=== PATIENT | female | born 1985 | race Caucasian/White ===

== ENCOUNTER 2019-05-04 10:42 | Emergency (ER) | payer OTHER, SELFPAY ==
--- NOTE | 2019-05-04 | ECG_ITS ---
Measurements Intervals [place] Rate: 204 P: [place]: 0 QRS: 17 QRSD: 88 T: 41 QT: 201 QTc: 370 Interpretive Statements SUPRAVENTRICULAR TACHYCARDIA NONSPECIFIC ST & T-WAVE ABNORMALITY- DIFFUSE LEADS ABNORMAL ECG Electronically Signed On 05-04-2019 11:38:22 CDT by Jack Leblanc D.O.
[2019-05-04 10:50] VITALS: BP 141/82; PULSE 205; RESP 22; TEMP 36.1; O2SAT 100
--- NOTE | 2019-05-04 11:01 | ED.ARRPALP ---
HPI - Arrhythmia/Palpitations General Chief Complaint: Arrhythmia/Palpitations Stated Complaint: arrhythmia Time Seen by Provider: 05/04/19 10:55 Source: patient and RN notes reviewed Mode of arrival: ambulatory Limitations: no limitations History of Present Illness HPI narrative: Pt is a 34 y/o female presenting to the ED c/o palpitations. Pt reports she started experiencing palpitations at 1000 this morning. Pt denies CP, SOB, cough, ST, fever, or rhinorrhea. Pt notes she had similar Sx's previously and notes she was put on a Holter monitor about 8 years ago. Pt reports the monitor did not catch any arrythmia's and her condition was undiagnosed by her Renal Nurse. Pt notes her only medication is control and states she sees a PCP in [place]. Pt reports Hx's of Asthma, Anxiety, and Tonsillectomy. Pt denies being a smoker. Onset (ago): hour(s) (1) Arrhythmia history: other (Undiagnosed) Associated symptoms: denies other symptoms Related Data Home Medications Medication Instructions Recorded Confirmed albuterol sulfate 1 inh INHALATION QID PRN 05/04/19 norethindrone-e.estradiol-iron tablet 05/04/19 [03/06 (28)] Allergies Allergy/AdvReac Type Severity Reaction Status Date / Time cefaclor Allergy Mild Hives / Verified 05/04/19 11:16 Red Face Review of Systems Review of Systems: All systems reviewed & are unremarkable except as noted in HPI and below Constitutional: Constitutional: Denies fever(s) ENT: Denies sore throat and Denies other (Rhinorrhea) Cardiovascular: Cardiovascular: Denies chest pain and Reports palpitations Respiratory: Respiratory: Denies cough and Denies dyspnea [facility] Past Medical History Medical History Anxiety Asthma Surgical History Surgical History History of tonsillectomy Social History Social History Smoking status: Never smoker Gender identity (if verbalized by the patient): Female Exam Const: General: cooperative, no acute distress and alert Nutritional Appearance: obese Orientation/consciousness: patient oriented x3 Limitations: no limitations HENMT: Mouth: Yes lip normal Resp: Effort & Inspection: normal respiratory effort Auscultation: clear to auscultation bilaterally Cardio: Rate: tachycardic Rhythm: regular rhythm GI: GI Palp: Yes Soft to palpation and No Tenderness to palpation present (GI) Auscultation: normal bowel sounds Skin: General skin exam: normal color Neuro: General: patient oriented x3 Cognition (Neuro): normal cognition Speech: normal speech Extrem: General: normal to inspection, full ROM and no clubbing, cyanosis or edema Psych: Mental Status: mental status grossly normal Affect: Anxious affect present Attitude: cooperative Course Course Emergency Course: 6 mg of Adenosine administered IVP at 1107. Pt's HR went from SVT to Tachycardic but NSR. Patient labs unremarkable aside from asymptomatic pyuria and liver enzyme elevation. Patient advised to follow-up results of urine culture and her liver enzyme elevation with her primary care physician. Patient lives in [place] 45 minutes from here. Advised importance of discussing referral to [facility] with her primary care physician closer to home where would be more convenient for her to make follow-up arrangements. Vital Signs Vital signs: Vital Signs Temperature 97.0 F L 05/04/19 10:50 Pulse Rate 205 H 05/04/19 10:50 Respiratory Rate 22 H 05/04/19 10:50 Blood Pressure 141/82 H 05/04/19 10:50 Pulse Oximetry 100 05/04/19 10:50 Temperature 97.0 F L 05/04/19 10:50 Pulse Rate 103 H 05/04/19 12:42 Respiratory Rate 18 05/04/19 12:42 Blood Pressure 112/75 05/04/19 12:42 Pulse Oximetry 98 05/04/19 12:42 MDM - Arrhythmia/Palpitations Lab Data Attestation: I reviewed the patient's lab results. Result
--- NOTE | 2019-05-04 11:07 | PC.NURSE ---
iv fluids started and adenosine 6 mg rapid iv push with flush at this time.pt converted to sinus tach 112 after first 6 mg dose
[2019-05-04] MEDS: ADENOSINE IV SOLN 6 MG/2 ML VIAL 18 MG (11:20)
[2019-05-04] MEDS: SODIUM CHLORIDE 0.9% IV 1,000 ML 999 ML (11:21)
[2019-05-04 11:39] VITALS: BP 141/91; PULSE 120; RESP 16; O2SAT 99
[2019-05-04 11:46] LABS: Basophils Percent Auto 0.4 % (0.2-1.2); Eosinophils Absolute Auto 0.2 K/mm3 (0-0.3); Hemoglobin 15.3 g/dL (12.0-15.0); Immature Granulocyte Absolute 0.02 K/mm3 (0.00-0.031); Immature Granulocyte Percent A 0.2 % (0-0.5); Lymphocytes Absolute Auto 3.34 K/mm3 (0.9-3.2); Lymphocytes Percent Auto 33.6 % (18.3-44.2); Mean Corpuscular Hemoglobin 30.4 pg (26-34); Mean Corpuscular Volume 89.5 fl (80-100); Mean Platelet Volume 10.6 fl (7.4-10.4); Monocytes Absolute Auto 0.6 K/mm3 (0.1-0.6); Monocytes Percent Auto 5.9 % (2.6-8.5); Neutrophils Absolute Auto 5.7 K/mm3 (1.3-6.7); Neutrophils Percent Auto 57.9 % (45.5-73.1); Platelet Count Result 374 k/mm3 (150-375); Red Blood Count 5.03 M/mm3 (4.2-5.4); Red Cell Distribution Width 12.4 % (11.5-14.5); White Blood Count 9.9 K/mm3 (4.5-10.0)
[2019-05-04 11:51] LABS: Bacteria Urine 1+ /hpf; Budding Yeast Urine Present /hpf; Mucus Urine Rare /lpf; Squamous Epithelial Cell Urine Many /hpf (Few); WBC Urine 31-50 /hpf
[2019-05-04 11:52] LABS: Add Urine Microscopic? YES; Appearance Urine Cloudy (Clear); Bilirubin Urine Negative (Negative); Blood Urine Negative (Negative); Color Urine Yellow (Yellow); Glucose Urine UA Negative (Negative); Ketones Urine Negative (Negative); Leukocyte Esterase Ur 3+ LEU/UL (Negative); Nitrate Urine Negative (Negative); Protein Urine 1+ mg/dL (Negative); Specific Grav Ur 1.008 (1.001-1.035); Urobilinogen Urine Negative mg/dL (<2.0)
[2019-05-04 11:57] LABS: Alanine Aminotransferase 442 U/L (4-35); Albumin Level 4.8 g/dL (3.5-5.1); Alkaline Phosphatase 68 U/L (38-126); Aspartate Amino Transferase 202 U/L (14-36); Bilirubin,Total 0.5 mg/dL (0.2-1.3); Blood Urea Nitrogen 14 mg/dL (7-17); Carbon Dioxide 24 mmol/L (22-30); Chloride 105 mmol/L (98-107); Estimated CRCL calculation 110 ml/min; Estimated Glomerular Filt Rate > 60; Glucose 121 mg/dL (65-105); Magnesium 1.9 mg/dL (1.6-2.3); Potassium 3.9 mmol/L (3.4-5.0); Sodium 139 mmol/L (137-145)
[2019-05-04 12:42] VITALS: BP 112/75; PULSE 103; RESP 18; O2SAT 98
--- NOTE | 2019-05-04 13:59 | ECG_ITS ---
Measurements Intervals [place] Rate: 111 P: 48 [place]: 161 QRS: 3 QRSD: 85 T: 1 QT: 299 QTc: 408 Interpretive Statements SINUS TACHYCARDIA VOLTAGE CRITERIA FOR LVH ABNORMAL ECG Electronically Signed On 05-04-2019 14:14:50 CDT by Jack Leblanc D.O.
[2019-05-04 14:30] VITALS: BP 126/76; PULSE 95; RESP 16; O2SAT 100
== END 2019-05-04 14:32 | disposition home or self-care (01) ==
PROVIDERS: Emergency Provider Emergency Medicine
DX: I47.1 Supraventricular tachycardia (principal); J45.909 Unspecified asthma, uncomplicated; R94.31 Abnormal electrocardiogram [ECG] [EKG]
CPT/HCPCS: 36415; 80053; 81001; 81025; 83735; 84443; 85025; 87086; 87088; 93005; 96361; 96374; 99284; J0153; J7030